=== PATIENT | female | born 1970 | race Asian ===

== ENCOUNTER → 2019-10-01 | Day surgery (SDC) | payer OTHER ==
[~2019-10-01] MED LIST: ACETAMINOPHEN 325 MG TABLET PO PRN; ALBUTEROL SULFATE 2.5 MG/3 ML NEBU. NEB PRN; ATROPINE 0.5 MG/5 ML DISP.SYRIN. IV PRN; IV RINGERS SOLUTION,LACTATED 1,000 ML IV SCH; LEVO50TA5 PO; MIDAZOLAM HCL PF 2 MG/2 ML VIAL. IV PRN; MULT1TAB52 PO; OMEP-229 PO; ONDANSETRON PF 4 MG/2 ML VIAL. IV PRN; PHENOL ORAL SPRAY 177ML BOTTLE. MM PRN; PROPOFOL 40 ML IV ONE; diphenhydrAMINE 50 MG/ML VIAL IV PRN
[2019-10-01] MEDS: IV RINGERS SOLUTION,LACTATED 1,000 ML IV SCH (09:20)
[2019-10-01 10:30] VITALS: BP 103/56
== END ==
LOC: SURG 08:51 → EDSEX 10:00
PROVIDERS: ATTEND Internal Medicine Gastroenterology
DX: Z12.11 Encounter for screening for malignant neoplasm of colon (principal); D12.2 Benign neoplasm of ascending colon; D12.3 Benign neoplasm of transverse colon; K21.9 Gastro-esophageal reflux disease without esophagitis; F41.9 Anxiety disorder, unspecified; Z98.890 Other specified postprocedural states
CPT/HCPCS: 45385; J2704; J7120

== ENCOUNTER 2019-12-11 11:56 | Emergency (ER) | payer OTHER ==
[~2019-12-11] VITALS: Ht 165.1 cm; Wt 55.0 kg
[2019-12-11 11:56] VITALS: BP 103/56
[~2019-12-11 11:56] MED LIST changes: -ACETAMINOPHEN 325 MG TABLET PO PRN; -ALBUTEROL SULFATE 2.5 MG/3 ML NEBU. NEB PRN; -ATROPINE 0.5 MG/5 ML DISP.SYRIN. IV PRN; -IV RINGERS SOLUTION,LACTATED 1,000 ML IV SCH; -MIDAZOLAM HCL PF 2 MG/2 ML VIAL. IV PRN; -OMEP-229 PO; +OMEP20CA16 PO; -ONDANSETRON PF 4 MG/2 ML VIAL. IV PRN; -PHENOL ORAL SPRAY 177ML BOTTLE. MM PRN; -PROPOFOL 40 ML IV ONE; -diphenhydrAMINE 50 MG/ML VIAL IV PRN
[2019-12-11] MEDS ORDERED: IBUPROFEN 600 MG TABLET. PO ONE (12:15)
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
== END 2019-12-11 13:22 | disposition home or self-care (01) ==
LOC: ER 11:56
DX: S60.221A Contusion of right hand, initial encounter (principal); K21.9 Gastro-esophageal reflux disease without esophagitis; E03.9 Hypothyroidism, unspecified; V49.9XXA Car occupant (driver) (passenger) injured in unspecified traffic accident, initial encounter; Y93.89 Activity, other specified; Y92.89 Other specified places as the place of occurrence of the external cause; Y99.8 Other external cause status
CPT/HCPCS: 73090; 73130; 99284

== ENCOUNTER 2019-12-15 15:42 | Emergency (ER) | payer OTHER ==
[~2019-12-15] VITALS: Ht 165.1 cm; Wt 55.0 kg
[2019-12-15 15:42] VITALS: BP 111/75
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
[2019-12-15] MEDS ORDERED: DICL50TA4 PO (16:44)
[2019-12-15] MEDS ORDERED: ORPH-16 PO (16:44)
[2019-12-15] MEDS ORDERED: RANI-376 PO (16:44)
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
== END 2019-12-15 16:49 | disposition home or self-care (01) ==
LOC: ER 15:42
DX: S16.1XXA Strain of muscle, fascia and tendon at neck level, initial encounter (principal); K30 Functional dyspepsia; K21.9 Gastro-esophageal reflux disease without esophagitis; E03.9 Hypothyroidism, unspecified; X58.XXXA Exposure to other specified factors, initial encounter; Y93.89 Activity, other specified; Y92.89 Other specified places as the place of occurrence of the external cause; Y99.8 Other external cause status
CPT/HCPCS: 72040; 74022; 99284